=== PATIENT | female | born 1940 | race Caucasian/White ===

== ENCOUNTER 2024-03-09 11:01 | Inpatient (IN) ==
[2024-03-09] MEDS ORDERED: IOPAMIDOL 100 ML BOTTLE IV ONE (11:02)
[2024-03-09 12:10] LABS: Basophils # (Auto) 0.03 K/mcL (0.00-0.30); Basophils % (Auto) 0.4 % (0.0-2.0); Eosinophils # (Auto) 0.35 K/mcL (0.00-0.70); Eosinophils % (Auto) 4.4 % (0.0-7.0); Hematocrit 38.1 % (34.1-44.9); Lymphocytes # (Auto) 1.18 K/mcL (1.50-4.80); Lymphocytes % (Auto) 14.8 % (15.5-49.0); Mean Cell Volume 92.7 fL (80.0-100.0); Mean Corpuscular HGB Conc 31.5 g/dL (31.0-36.0); Mean Platelet Volume 12.1 fL (8.8-12.5); Monocytes # (Auto) 0.94 K/mcL (0.10-0.90); Monocytes % (Auto) 11.8 % (1.0-12.0); Neutrophils % (Auto) 68.1 % (38.0-78.0); Platelet Count 165 K/mcL (140-440); RBC 4.11 M/mcL (3.59-5.38); Red Cell Distribution Width 12.3 % (11.5-14.5)
[2024-03-09 12:33] LABS: ALT/SGPT 17 U/L (<40); AST/SGOT 28 U/L (<32); Albumin 3.9 gm/dL (3.2-5.2); Albumin/Globulin Ratio 1.1 (1.0-2.3); Alkaline Phosphatase 78 U/L (39-117); Bilirubin,Total 0.4 mg/dL (0.1-1.0); Blood Urea Nitrogen 15 mg/dL (8-23); Calcium 9.7 mg/dL (8.6-10.4); Carbon Dioxide 28 mmol/L (22-30); Chloride 99 mmol/L (96-108); Globulin 3.6 gm/dL (2.2-3.7); Glomerular Filtration Rate 67; Glucose 114 mg/dL (70-105); Potassium 3.8 mmol/L (3.3-5.1); Sodium 137 mmol/L (133-145)
[2024-03-09] MEDS: methylPREDNISolone SOD SUCC 125 MG/2 ML VIAL IV ONE (12:47)
[2024-03-09] MEDS: AZITHROMYCIN 250 MG TABLET PO ONE (12:47)
[2024-03-09] MEDS: AMOXICILLIN/POTASSIUM CLAV 875 MG TABLET PO ONE (12:47)
[2024-03-09] MEDS: IPRATROPIUM/ALBUTEROL 3 ML AMPUL.NEB NEB ONE (12:48)
[2024-03-09 14:24] LABS: Appearance,Urine Cloudy (Clear); Bacteria,Urine Mod /hpf (0); Bilirubin,Urine Negative (Negative); Color,Urine Yellow; Glucose,Urine (UA) Negative (Negative); Ketones,Urine Negative (Negative); Leukocyte Esterase,Urine Large /uL (Negative); Nitrate,Urine Positive (Negative); PH,Urine 6.5 (5.0-9.0); Protein,Urine 30 mg/dL (Negative); Specific Gravity,Urine 1.025 (1.000-1.035); Urine Blood Trace-intact ery/mcL (Negative); Urine RBC 0 /hpf (0-3); Urine Squamous Epithelial Cell 0 /hpf (0-4); Urine WBC > 182 /hpf (0-4); Urobilinogen,Urine Normal
[2024-03-09] MEDS ORDERED: POTASSIUM CHLORIDE 40 MEQ in DEXTROSE 5% IN WATER 500 ML IV PRN (16:50)
[2024-03-09] MEDS ORDERED: POTASSIUM CHLORIDE 20 MEQ TABLET PO PRN ×2 (16:50)
[2024-03-09] MEDS ORDERED: MAGNESIUM SULFATE 2 GM/50 ML BAG IV PRN (16:50)
[2024-03-09] MEDS ORDERED: ONDANSETRON 4 MG/2 ML VIAL IV PRN (16:50)
[2024-03-09] MEDS ORDERED: SENNOSIDES 1 TABLET PO PRN (16:50)
[2024-03-09] MEDS ORDERED: POLYETHYLENE GLYCOL 3350 17 GM PACKET PO PRN (16:50)
[2024-03-09] MEDS ORDERED: METOCLOPRAMIDE 10 MG/2 ML VIAL IV PRN (16:50)
[2024-03-09 17:03] LABS: Basophils % (Manual) 1 % (0-2); Eosinophils % (Manual) 6 % (0-7); Lymphocytes % 20 % (15-49); Monocytes % (Manual) 18 % (1-12); Platelet Estimate DECREASED (Normal); RBC Morphology NORMAL (Normal); Segmented Neutrophils % 55 % (38-78)
[2024-03-09] MEDS: AMPICILLIN SODIUM 1 GM in 0.9 % SODIUM CHLORIDE 50 ML IV SCH (17:41)
[2024-03-09] MEDS: IPRATROPIUM/ALBUTEROL 3 ML AMPUL.NEB NEB SCH (18:36)
[2024-03-09] MEDS: BUDESONIDE 0.5 MG/2 ML AMPUL.NEB NEB SCH (18:36)
[2024-03-09] MEDS: DOCUSATE SODIUM 100 MG CAPSULE PO SCH (20:49)
[2024-03-09] MEDS: HYDROXYCHLOROQUINE 200 MG TABLET PO SCH (21:24)
[2024-03-09] MEDS: methylPREDNISolone SOD SUCC 125 MG/2 ML VIAL IV SCH (21:24)
[2024-03-09] MEDS: 0.9 % SODIUM CHLORIDE 10 ML SYRINGE IV SCH (21:25)
[2024-03-10 06:25] LABS: ALT/SGPT 15 U/L (<40); AST/SGOT 23 U/L (<32); Albumin 3.5 gm/dL (3.2-5.2); Albumin/Globulin Ratio 1.1 (1.0-2.3); Alkaline Phosphatase 67 U/L (39-117); Bilirubin,Direct < 0.2 mg/dL (0-0.3); Bilirubin,Total 0.2 mg/dL (0.1-1.0); Blood Urea Nitrogen 19 mg/dL (8-23); Calcium 9.1 mg/dL (8.6-10.4); Carbon Dioxide 25 mmol/L (22-30); Chloride 101 mmol/L (96-108); Globulin 3.1 gm/dL (2.2-3.7); Glomerular Filtration Rate 67; Glucose 202 mg/dL (70-105); Lactate Dehydrogenase 267 U/L (135-225); Phosphorous 3.1 mg/dL (2.5-4.5); Potassium 4.2 mmol/L (3.3-5.1); Sodium 136 mmol/L (133-145); Triglycerides 42 mg/dL (<150); Uric Acid 4.9 mg/dL (2.5-8.0)
[2024-03-10] MEDS: ENOXAPARIN 40 MG/0.4 ML SYRINGE SQ SCH (08:30)
[2024-03-10] MEDS: AZITHROMYCIN 500 MG in DEXTROSE 5% IN WATER 250 ML IV SCH (10:36)
[2024-03-10] MEDS: methylPREDNISolone SOD SUCC 40 MG/ML VIAL IV SCH (13:53)
[2024-03-10 20:41] LABS: Estimated Average Glucose(eAG) 140 mg/dL; Hemoglobin A1C 6.5 % Hgb (4.0-6.0)
[2024-03-10 21:15] LABS: Basophils # (Auto) 0.01 K/mcL (0.00-0.30); Basophils % (Auto) 0.1 % (0.0-2.0); Eosinophils # (Auto) 0 K/mcL (0.00-0.70); Eosinophils % (Auto) 0 % (0.0-7.0); Hematocrit 33.9 % (34.1-44.9); Hemoglobin 11.1 g/dL (11.2-15.7); Lymphocytes % (Auto) 9.2 % (15.5-49.0); Mean Cell Volume 87.8 fL (80.0-100.0); Mean Corpuscular HGB Conc 32.7 g/dL (31.0-36.0); Mean Platelet Volume 14.4 fL (8.8-12.5); Monocytes # (Auto) 0.37 K/mcL (0.10-0.90); Monocytes % (Auto) 3.4 % (1.0-12.0); Neutrophils % (Auto) 86.7 % (38.0-78.0); Platelet Count 187 K/mcL (140-440); RBC 3.86 M/mcL (3.59-5.38); Red Cell Distribution Width 12.6 % (11.5-14.5); WBC 10.8 K/mcL (4.5-11.0)
[2024-03-10] MEDS: IPRATROPIUM/ALBUTEROL 3 ML AMPUL.NEB NEB PRN (21:32)
[2024-03-11] MEDS: ACETAMINOPHEN 325 MG TABLET PO PRN (05:07)
[2024-03-11] MEDS: AZITHROMYCIN 500 MG in 0.9 % SODIUM CHLORIDE 250 ML IV SCH (09:54)
[2024-03-11] MEDS: cefTRIAXone 1 GM VIAL IV SCH (11:36)
[2024-03-11] MEDS: MELATONIN 3 MG TABLET PO SCH (20:58)
[2024-03-11] MEDS: methylPREDNISolone SOD SUCC 40 MG/ML VIAL IV SCH (20:59)
[2024-03-11] MEDS ORDERED: diphenhydrAMINE 25 MG CAPSULE PO PRN (21:00)
[2024-03-12 06:23] LABS: ALT/SGPT 21 U/L (<40); AST/SGOT 30 U/L (<32); Albumin 3.2 gm/dL (3.2-5.2); Albumin/Globulin Ratio 1.2 (1.0-2.3); Alkaline Phosphatase 62 U/L (39-117); Bilirubin,Direct < 0.2 mg/dL (0-0.3); Bilirubin,Total < 0.2 mg/dL (0.1-1.0); Blood Urea Nitrogen 27 mg/dL (8-23); Calcium 8.6 mg/dL (8.6-10.4); Carbon Dioxide 27 mmol/L (22-30); Chloride 105 mmol/L (96-108); Globulin 2.7 gm/dL (2.2-3.7); Glomerular Filtration Rate 58; Glucose 159 mg/dL (70-105); Lactate Dehydrogenase 311 U/L (135-225); Phosphorous 2.6 mg/dL (2.5-4.5); Potassium 4.8 mmol/L (3.3-5.1); Sodium 141 mmol/L (133-145); Triglycerides 59 mg/dL (<150); Uric Acid 5.2 mg/dL (2.5-8.0)
[2024-03-12] MEDS: prednisoLONE 1% OPHTH DROPS 1ML BOTTLE OU SCH (09:04)
== END 2024-03-12 13:20 | DRG 189 ==
LOC: ED 11:01 → ICU 16:42 → MEDSUR 03-11 17:16
PROVIDERS: ADMIT Internal Medicine; ATTEND Internal Medicine

== ENCOUNTER 2024-07-03 08:48 | Inpatient (IN) ==
[2024-07-03] MEDS ORDERED: IOPAMIDOL 100 ML BOTTLE IV ONE (08:49)
[2024-07-03] MEDS: IPRATROPIUM/ALBUTEROL 3 ML AMPUL.NEB NEB ONE (09:10)
[2024-07-03 09:26] LABS: Basophils # (Auto) 0.02 K/mcL (0.00-0.30); Basophils % (Auto) 0.3 % (0.0-2.0); Eosinophils # (Auto) 0.18 K/mcL (0.00-0.70); Eosinophils % (Auto) 2.7 % (0.0-7.0); Hematocrit 35.6 % (34.1-44.9); Hemoglobin 11.3 g/dL (11.2-15.7); Lymphocytes % (Auto) 16.2 % (15.5-49.0); Mean Cell Volume 91.3 fL (80.0-100.0); Mean Corpuscular HGB Conc 31.7 g/dL (31.0-36.0); Mean Platelet Volume 11.9 fL (8.8-12.5); Monocytes # (Auto) 0.89 K/mcL (0.10-0.90); Monocytes % (Auto) 13.1 % (1.0-12.0); Neutrophils % (Auto) 67.4 % (38.0-78.0); Platelet Count 163 K/mcL (140-440); WBC 6.8 K/mcL (4.5-11.0)
[2024-07-03 10:17] LABS: Blood Urea Nitrogen 11 mg/dL (8-23); Calcium 9.3 mg/dL (8.6-10.4); Carbon Dioxide 27 mmol/L (22-30); Chloride 101 mmol/L (96-108); Glomerular Filtration Rate 58; Glucose 122 mg/dL (70-105); Sodium 139 mmol/L (133-145)
[2024-07-03] MEDS: FUROSEMIDE 20 MG/2 ML VIAL IV ONE (11:27)
[2024-07-03] MEDS: cefTRIAXone 2 GM in DEXTROSE 5% IN WATER 50 ML IV ONE (11:27)
[2024-07-03] MEDS: AZITHROMYCIN 250 MG TABLET PO ONE (11:27)
[2024-07-03] MEDS ORDERED: IPRATROPIUM/ALBUTEROL 3 ML AMPUL.NEB NEB PRN (14:47)
[2024-07-03] MEDS: IPRATROPIUM/ALBUTEROL 3 ML AMPUL.NEB NEB SCH (15:30)
[2024-07-03] MEDS ORDERED: SENNOSIDES 1 TABLET PO PRN (17:52)
[2024-07-03] MEDS ORDERED: ONDANSETRON 4 MG/2 ML VIAL IV PRN (17:52)
[2024-07-03] MEDS: methylPREDNISolone SOD SUCC 125 MG/2 ML VIAL IV ONE ×2 (18:02)
[2024-07-03] MEDS: DOXYCYCLINE 100 MG in DEXTROSE 5% IN WATER 100 ML IV SCH (18:02)
[2024-07-03] MEDS: ACETAMINOPHEN 325 MG TABLET PO PRN (21:07)
[2024-07-03] MEDS: HEPARIN 5,000 UNIT/ML VIAL SQ SCH (21:07)
[2024-07-03] MEDS: DOCUSATE SODIUM 100 MG CAPSULE PO SCH (21:08)
[2024-07-03] MEDS: 0.9 % SODIUM CHLORIDE 10 ML SYRINGE IV SCH (21:08)
[2024-07-04 06:56] LABS: Basophils # (Auto) 0.01 K/mcL (0.00-0.30); Basophils % (Auto) 0.2 % (0.0-2.0); Eosinophils # (Auto) 0 K/mcL (0.00-0.70); Eosinophils % (Auto) 0 % (0.0-7.0); Hematocrit 32.4 % (34.1-44.9); Hemoglobin 10.4 g/dL (11.2-15.7); Lymphocytes # (Auto) 0.46 K/mcL (1.50-4.80); Lymphocytes % (Auto) 11.4 % (15.5-49.0); Mean Cell Volume 90.8 fL (80.0-100.0); Mean Corpuscular HGB Conc 32.1 g/dL (31.0-36.0); Mean Platelet Volume 12.7 fL (8.8-12.5); Monocytes # (Auto) 0.19 K/mcL (0.10-0.90); Monocytes % (Auto) 4.7 % (1.0-12.0); Neutrophils % (Auto) 83.7 % (38.0-78.0); Platelet Count 149 K/mcL (140-440); RBC 3.57 M/mcL (3.59-5.38); Red Cell Distribution Width 12.2 % (11.5-14.5)
[2024-07-04 07:40] LABS: C-Reactive Protein 2.39 mg/dL (0.03-0.80)
[2024-07-04 07:47] LABS: Blood Urea Nitrogen 22 mg/dL (8-23); Carbon Dioxide 27 mmol/L (22-30); Chloride 99 mmol/L (96-108); Glomerular Filtration Rate 45; Glucose 204 mg/dL (70-105); Potassium 4.3 mmol/L (3.3-5.1); Sodium 138 mmol/L (133-145)
[2024-07-04] MEDS: methylPREDNISolone SOD SUCC 125 MG/2 ML VIAL IV SCH ×2 (09:00→14:42)
[2024-07-04] MEDS ORDERED: cefTRIAXone 1 GM VIAL IV SCH (09:00)
[2024-07-04] MEDS: cefTRIAXone 2 GM in DEXTROSE 5% IN WATER 50 ML IV SCH (09:00)
[2024-07-04] MEDS: IPRATROPIUM/ALBUTEROL 3 ML AMPUL.NEB NEB SCH (11:37)
[2024-07-05 06:57] LABS: Basophils # (Auto) 0.02 K/mcL (0.00-0.30); Basophils % (Auto) 0.1 % (0.0-2.0); Eosinophils # (Auto) 0 K/mcL (0.00-0.70); Eosinophils % (Auto) 0 % (0.0-7.0); Hematocrit 32.3 % (34.1-44.9); Hemoglobin 10.5 g/dL (11.2-15.7); Lymphocytes % (Auto) 5.8 % (15.5-49.0); Mean Corpuscular HGB Conc 32.5 g/dL (31.0-36.0); Mean Platelet Volume 12.6 fL (8.8-12.5); Monocytes # (Auto) 0.84 K/mcL (0.10-0.90); Monocytes % (Auto) 5.4 % (1.0-12.0); Neutrophils % (Auto) 88.2 % (38.0-78.0); Platelet Count 169 K/mcL (140-440); RBC 3.59 M/mcL (3.59-5.38); Red Cell Distribution Width 12.3 % (11.5-14.5); WBC 15.5 K/mcL (4.5-11.0)
[2024-07-05 07:43] LABS: Blood Urea Nitrogen 35 mg/dL (8-23); Carbon Dioxide 25 mmol/L (22-30); Chloride 100 mmol/L (96-108); Glomerular Filtration Rate 51; Glucose 186 mg/dL (70-105); Potassium 4.4 mmol/L (3.3-5.1); Sodium 137 mmol/L (133-145)
[2024-07-05] MEDS ORDERED: Diclofenac Sodium 1 % gel TOPICAL PRN (12:46)
[2024-07-05] MEDS: CHOLESTYRAMINE/ASPARTAME 4 GM POWD.PACK PO SCH (20:39)
[2024-07-05] MEDS: HYDROXYCHLOROQUINE 200 MG TABLET PO SCH (20:41)
[2024-07-05] MEDS: DOXYCYCLINE HYCLATE 100 MG TABLET.ORL PO SCH (20:41)
[2024-07-05] MEDS: CEFDINIR 300 MG CAPSULE PO SCH (20:41)
[2024-07-06 06:03] LABS: Basophils # (Auto) 0.02 K/mcL (0.00-0.30); Basophils % (Auto) 0.2 % (0.0-2.0); Eosinophils # (Auto) 0 K/mcL (0.00-0.70); Eosinophils % (Auto) 0 % (0.0-7.0); Hematocrit 31.9 % (34.1-44.9); Hemoglobin 10.2 g/dL (11.2-15.7); Lymphocytes # (Auto) 1.15 K/mcL (1.50-4.80); Lymphocytes % (Auto) 8.9 % (15.5-49.0); Mean Cell Volume 90.9 fL (80.0-100.0); Mean Platelet Volume 12.1 fL (8.8-12.5); Monocytes # (Auto) 0.84 K/mcL (0.10-0.90); Monocytes % (Auto) 6.5 % (1.0-12.0); Neutrophils % (Auto) 83.9 % (38.0-78.0); Platelet Count 187 K/mcL (140-440); RBC 3.51 M/mcL (3.59-5.38); Red Cell Distribution Width 12.5 % (11.5-14.5)
[2024-07-06 06:30] LABS: Blood Urea Nitrogen 35 mg/dL (8-23); C-Reactive Protein 0.78 mg/dL (0.03-0.80); Calcium 8.8 mg/dL (8.6-10.4); Carbon Dioxide 25 mmol/L (22-30); Chloride 102 mmol/L (96-108); Glomerular Filtration Rate 67; Glucose 177 mg/dL (70-105); Potassium 4.8 mmol/L (3.3-5.1); Sodium 139 mmol/L (133-145)
[2024-07-06] MEDS: CALCIUM (OYSTER SHELL) 500 MG TABLET PO SCH (08:33)
[2024-07-06] MEDS: VITAMIN D3 25 MCG TABLET PO SCH (08:33)
[2024-07-06] MEDS: MULTIVIT,THER IRON,CA,FA & MIN 1 TABLET PO SCH (08:33)
[2024-07-06] MEDS: methylPREDNISolone SOD SUCC 125 MG/2 ML VIAL IV SCH (11:06)
[2024-07-07 06:22] LABS: Basophils # (Auto) 0.01 K/mcL (0.00-0.30); Basophils % (Auto) 0.1 % (0.0-2.0); Eosinophils # (Auto) 0 K/mcL (0.00-0.70); Eosinophils % (Auto) 0 % (0.0-7.0); Hematocrit 32.8 % (34.1-44.9); Hemoglobin 10.3 g/dL (11.2-15.7); Lymphocytes # (Auto) 1.19 K/mcL (1.50-4.80); Lymphocytes % (Auto) 11.8 % (15.5-49.0); Mean Cell Volume 91.4 fL (80.0-100.0); Mean Corpuscular HGB Conc 31.4 g/dL (31.0-36.0); Mean Platelet Volume 12.4 fL (8.8-12.5); Monocytes # (Auto) 0.74 K/mcL (0.10-0.90); Monocytes % (Auto) 7.4 % (1.0-12.0); Neutrophils % (Auto) 79.4 % (38.0-78.0); Platelet Count 188 K/mcL (140-440); RBC 3.59 M/mcL (3.59-5.38); Red Cell Distribution Width 12.5 % (11.5-14.5); WBC 10.1 K/mcL (4.5-11.0)
[2024-07-07 07:04] LABS: ALT/SGPT 36 U/L (<40); AST/SGOT 31 U/L (<32); Albumin 3.6 gm/dL (3.2-5.2); Albumin/Globulin Ratio 1.3 (1.0-2.3); Alkaline Phosphatase 54 U/L (39-117); Bilirubin,Direct < 0.2 mg/dL (0-0.3); Bilirubin,Total < 0.2 mg/dL (0.1-1.0); Blood Urea Nitrogen 34 mg/dL (8-23); Calcium 8.6 mg/dL (8.6-10.4); Carbon Dioxide 26 mmol/L (22-30); Chloride 103 mmol/L (96-108); Globulin 2.7 gm/dL (2.2-3.7); Glomerular Filtration Rate 67; Glucose 158 mg/dL (70-105); Lactate Dehydrogenase 224 U/L (135-225); Phosphorous 1.9 mg/dL (2.5-4.5); Potassium 4.7 mmol/L (3.3-5.1); Sodium 138 mmol/L (133-145); Triglycerides 79 mg/dL (<150); Uric Acid 4.4 mg/dL (2.5-8.0)
[2024-07-07] MEDS: PHOSPHORUS 250 MG TABLET PO SCH (10:07)
[2024-07-07] MEDS: FUROSEMIDE 40 MG/4 ML VIAL IV ONE (10:07)
[2024-07-08 06:45] LABS: ALT/SGPT 36 U/L (<40); AST/SGOT 24 U/L (<32); Albumin 3.6 gm/dL (3.2-5.2); Albumin/Globulin Ratio 1.3 (1.0-2.3); Alkaline Phosphatase 54 U/L (39-117); Bilirubin,Direct < 0.2 mg/dL (0-0.3); Bilirubin,Total < 0.2 mg/dL (0.1-1.0); Blood Urea Nitrogen 32 mg/dL (8-23); Calcium 8.4 mg/dL (8.6-10.4); Carbon Dioxide 28 mmol/L (22-30); Chloride 99 mmol/L (96-108); Globulin 2.7 gm/dL (2.2-3.7); Glomerular Filtration Rate 67; Glucose 164 mg/dL (70-105); Lactate Dehydrogenase 233 U/L (135-225); Phosphorous 2.4 mg/dL (2.5-4.5); Potassium 4.4 mmol/L (3.3-5.1); Sodium 135 mmol/L (133-145); Triglycerides 114 mg/dL (<150); Uric Acid 4.6 mg/dL (2.5-8.0)
[2024-07-08] MEDS: methylPREDNISolone SOD SUCC 40 MG/ML VIAL IV SCH (08:39)
[2024-07-08] MEDS: prednisoLONE 1% OPHTH DROPS 1ML BOTTLE OU SCH (12:52)
[2024-07-08] MEDS: predniSONE 20 MG TABLET PO SCH (20:06)
[2024-07-09 13:21] VITALS: TEMP 97.9; O2SAT 94
== END 2024-07-09 14:55 | DRG 196 ==
LOC: ED 08:48 → MEDSUR 16:30
PROVIDERS: ADMIT Student in an Organized Health Care Education/Training Program; ATTEND Internal Medicine